=== PATIENT | female | born 1975 ===

== ENCOUNTER 2022-07-09 05:50 | Day surgery (SDC) | payer OTHER ==
[~2022-07-09] VITALS: Ht 157.5 cm; Wt 63.5 kg
== END 2022-07-09 17:50 | disposition home or self-care (01) ==
LOC: CIR.AMB 05:50
PROVIDERS: ATTEND Obstetrics & Gynecology
DX: N93.8 Other specified abnormal uterine and vaginal bleeding (principal); N84.0 Polyp of corpus uteri; Z88.6 Allergy status to analgesic agent; Z20.822 Contact with and (suspected) exposure to COVID-19

== ENCOUNTER 2022-12-15 07:30 | Outpatient (CLI) | payer OTHER | END 2022-12-15 23:00 | disposition home or self-care (01) | LOC: LAB 07:30 | PROVIDERS: ATTEND Student in an Organized Health Care Education/Training Program | DX: Z01.818 Encounter for other preprocedural examination (principal); J45.41 Moderate persistent asthma with (acute) exacerbation ==

== ENCOUNTER 2022-12-17 10:48 | Inpatient (IN) | payer OTHER ==
[~2022-12-17] VITALS: Ht 157.5 cm; Wt 66.2 kg
[2022-12-21] MEDS ORDERED: COLACE100 MG PO (08:48)
[2022-12-21] MEDS ORDERED: PERCOCET 5-3251 EACH PO (08:48)
[2022-12-21] MEDS ORDERED: SIMETHICONE80 MG PO (08:48)
[2022-12-21] MEDS ORDERED: ACETAMINOPHEN-1 EAC2 PO (09:07)
[2022-12-22] MEDS ORDERED: TRAM1TAB98 PO (08:42)
== END 2022-12-22 10:14 | disposition home or self-care (01) | DRG 743 ==
LOC: O/R 12-20 05:55 → SURH 12-20 12:30 → OB/GYN 12-20 15:26 → SURH 12-20 15:45 → OB/GYN 12-22 10:14
PROVIDERS: ADMIT Student in an Organized Health Care Education/Training Program; ATTEND Student in an Organized Health Care Education/Training Program
PROC: 0UT74ZZ Resection of Bilateral Fallopian Tubes, Percutaneous Endoscopic Approach (ICD-10-PCS; 2022-12-20)
PROC: 0TJB8ZZ Inspection of Bladder, Via Natural or Artificial Opening Endoscopic (ICD-10-PCS; 2022-12-20)
PROC: 0UT94ZZ Resection of Uterus, Percutaneous Endoscopic Approach (ICD-10-PCS; principal; 2022-12-20 15:45)
DX: D25.1 Intramural leiomyoma of uterus (principal); D25.2 Subserosal leiomyoma of uterus; N80.03 Adenomyosis of the uterus; Z20.822 Contact with and (suspected) exposure to COVID-19